=== PATIENT | male | born 1985 | race Caucasian/White ===

== ENCOUNTER → 2023-04-16 17:49 | Outpatient (CLI) | payer BC, SELFPAY ==
--- NOTE | 2023-04-16 | DI.RAD_ITS ---
Exam(s) XR FOOT LT COMPLETE EXAM: XR FOOT LT COMPLETE CLINICAL HISTORY: Pain in ball of the lt foot. TECHNIQUE: 2D digital imaging was performed. Three views. COMPARISON: No exams were available for comparison FINDINGS: BONES: No acute fracture is present. No bony destructive lesion is seen. JOINTS: No dislocation present. No significant degenerative changes. SOFT TISSUE: Normal. IMPRESSION: Unremarkable radiographs of the left foot. DATA REPOSITORY: RADIATION DOSE DELIVERED:
--- NOTE | 2023-04-16 18:23 | DI.VRAD_ITS ---
PROCEDURE INFORMATION: Exam: XR Left Foot Exam date and time: 04/16/2023 6:10 PM Age: 37 years old Clinical indication: Other: Pain in ball of foot TECHNIQUE: Imaging protocol: Radiologic exam of the left foot. Views: 3 or more views. COMPARISON: No relevant prior studies available. FINDINGS: Bones/joints: Normal. Soft tissues: Normal. IMPRESSION: No acute findings. Dictated and Authenticated by: Kareem Brewer MD. Ordering:SYLVIA BERRIOS MD
== END ==
PROVIDERS: Visit Provider Nurse Practitioner Family
DX: M79.672 Pain in left foot (principal)
CPT/HCPCS: 73630

== ENCOUNTER 2023-06-28 02:29 | Outpatient (CLI) | payer BC, SELFPAY ==
[2023-06-28 15:47] LABS: Bilirubin Negative (Negative); Blood Negative (Negative); Clarity Clear (Clear); Glucose Negative (Negative); Ketones Negative (Negative); Leukocyte Esterase Negative (Negative); Nitrite Negative (Negative); Urobilinogen 0.2 mg/dL (Up to 0.2); pH 6.5 (5-8)
[2023-06-28 15:56] LABS: Abs Immature Grans 0.02 10^3/uL (0.0-0.06); Absolute Basophil Count 0.05 10^3/uL (0.0-0.2); Absolute Eosinophil Count 0.05 10^3/uL (0.0-0.7); Absolute Lymphocyte Count 1.42 10^3/uL (1.2-3.4); Absolute Monocyte Count 0.27 10^3/uL (0.1-0.8); Absolute Neutrophil Count 4.42 10^3/uL (1.2-6.7); Basophils % 0.8; Eosinophils % 0.8; HCT 38.9 % (40.0-50.0); HGB 13.1 g/dL (13.5-17.5); Immature Grans % 0.3; Lymphocytes % 22.8; MCH 29.6 pg (27.0-33.0); MCHC 33.7 % (32.0-36.0); MCV 88 fL (80-95); MPV 9.9 fL (8.0-11.0); Monocytes % 4.3; Platelet Count 281 10^3/uL (130-400); RBC 4.42 10^6/uL (4.36-5.78); RDW 12.9 % (11.8-14.1); RDW-SD 41.9 fL; WBC 6.23 10^3/uL (4.4-10.8)
[2023-06-28 16:56] LABS: ALT 56 U/L (16-63); AST 27 U/L (15-37); Albumin 4.2 g/dL (3.4-5.0); Alkaline Phosphatase 77 U/L (46-116); Anion Gap 8.1 mmol/L (3-11); BUN 10 mg/dL (7-18); Bilirubin, Total 0.5 mg/dL (0.2-1.0); CO2 27.9 mmol/L (21.0-32.0); CREATININE 1.2 mg/dL (0.70-1.30); Calcium 8.5 mg/dL (8.5-10.1); Calculated LDL 98 mg/dL (<100); Chloride 103 mmol/L (98-107); Cholesterol 165 mg/dL (<200); Estimated GFR 79.38 (mL/min/1.73m2); Ferritin 76 ng/mL (26-388); Glucose 134 mg/dL (74-106); HDL Cholesterol 54 mg/dL (40-60); Iron 74 ug/dL (65-175); Potassium 4.3 mmol/L (3.5-5.1); Sodium 139 mmol/L (136-145); TSH 0.94 uIU/Ml (0.36-3.74); Total Protein 7.4 g/dL (6.4-8.2); Triglyceride 66 mg/dL (<150)
[2023-06-28 16:59] LABS: Hemoglobin A1C 5.7 % (<5.7)
== END 2023-06-28 02:30 | disposition home or self-care (01) ==
PROVIDERS: Visit Provider Naturopath
DX: R42 Dizziness and giddiness (principal); R53.83 Other fatigue; D50.9 Iron deficiency anemia, unspecified; Z13.220 Encounter for screening for lipoid disorders; R35.0 Frequency of micturition; Z13.1 Encounter for screening for diabetes mellitus; M25.572 Pain in left ankle and joints of left foot
CPT/HCPCS: 36415; 80053; 80061; 81003; 82728; 83036; 83540; 84443; 85025

== ENCOUNTER 2023-07-05 01:34 | Outpatient (CLI) | payer BC, SELFPAY ==
[2023-07-05 07:58] LABS: Kit/Specimen SENT
== END 2023-07-05 01:35 | disposition home or self-care (01) ==
LOC: LBO 01:35
PROVIDERS: Visit Provider Nurse Practitioner Family
DX: Z00.00 Encounter for general adult medical examination without abnormal findings (principal)
CPT/HCPCS: 36415

== ENCOUNTER 2024-01-15 03:27 | Outpatient (CLI) | payer BC, SELFPAY ==
[2024-01-15 17:00] LABS: Abs Immature Grans 0.02 10^3/uL (0.0-0.06); Absolute Basophil Count 0.05 10^3/uL (0.0-0.2); Absolute Eosinophil Count 0.07 10^3/uL (0.0-0.7); Absolute Lymphocyte Count 2.28 10^3/uL (1.2-3.4); Absolute Monocyte Count 0.48 10^3/uL (0.1-0.8); Absolute Neutrophil Count 3.91 10^3/uL (1.2-6.7); Basophils % 0.7 %; HCT 40.5 % (40.0-50.0); HGB 13.6 g/dL (13.5-17.5); Immature Grans % 0.3 %; Lymphocytes % 33.5 %; MCH 29.6 pg (27.0-33.0); MCHC 33.6 % (32.0-36.0); MCV 88 fL (80-95); MPV 10.3 fL (8.0-11.0); Neutrophils % 57.5 %; Platelet Count 261 10^3/uL (130-400); RBC 4.59 10^6/uL (4.36-5.78); RDW 12.2 % (11.8-14.1); RDW-SD 39.2 fL; WBC 6.81 10^3/uL (4.4-10.8)
[2024-01-15 18:03] LABS: ALT 38 U/L (16-63); AST 27 U/L (15-37); Albumin 4.2 g/dL (3.4-5.0); Alkaline Phosphatase 77 U/L (46-116); Anion Gap 7.5 mmol/L (3-11); BUN 18 mg/dL (7-18); Bilirubin, Total 0.39 mg/dL (0.2-1.0); CO2 30.5 mmol/L (21.0-32.0); CREATININE 1.3 mg/dL (0.70-1.30); Calcium 8.9 mg/dL (8.5-10.1); Chloride 104 mmol/L (98-107); Estimated GFR 71.67 (mL/min/1.73m2); Glucose 80 mg/dL (74-106); Potassium 4.4 mmol/L (3.5-5.1); Sodium 142 mmol/L (136-145); Total Protein 7.2 g/dL (6.4-8.2)
[2024-01-16 20:56] LABS: HBs Antibody, Quant 48.8 mIU/mL (See Note); Hepatitis B Surface Ab Positive (See Note)
[2024-01-16 21:08] LABS: Hepatitis B Surface Ag Negative (Negative)
[2024-01-16 21:36] LABS: Hepatitis C Ab w Rflx HCV PCR Negative (Negative)
[2024-01-16 21:38] LABS: Hep B Core Antibody Negative (Negative)
[2024-01-17 10:43] LABS: Syphilis Serology (RPR) Negative (Negative)
== END 2024-01-15 03:28 | disposition home or self-care (01) ==
PROVIDERS: Visit Provider Naturopath
DX: Z11.3 Encounter for screening for infections with a predominantly sexual mode of transmission (principal); Z11.2 Encounter for screening for other bacterial diseases; R42 Dizziness and giddiness; R53.83 Other fatigue; D50.9 Iron deficiency anemia, unspecified
CPT/HCPCS: 36415; 80053; 86704; 86706; 86803; 87340; 85025; 86592